=== PATIENT | female | born 1965 | race Caucasian/White ===

== ENCOUNTER → 2024-09-10 15:35 | Outpatient (REF) | payer BC, SELFPAY | LOC: WDC 15:35 | PROVIDERS: ATTENDING PHYSICIAN Physician Assistant Medical; FAMILY PHYSICIAN Family Medicine | DX: Z12.31 Encounter for screening mammogram for malignant neoplasm of breast (principal) | CPT/HCPCS: 77063; 77067 ==

== ENCOUNTER → 2025-09-19 18:13 | Outpatient (REF) | payer BC, SELFPAY | LOC: WDC 18:13 | PROVIDERS: ATTENDING PHYSICIAN Internal Medicine Geriatric Medicine; FAMILY PHYSICIAN Family Medicine | DX: Z12.31 Encounter for screening mammogram for malignant neoplasm of breast (principal) | CPT/HCPCS: 77063; 77067 ==